=== PATIENT | male | born 1945 | race Caucasian/White ===

== ENCOUNTER 2023-05-14 15:12 | Observation (INO) | payer MEDICARE, BC ==
[~2023-05-14] VITALS: Ht 185.4 cm; Wt 85.0 kg
[2023-05-14 15:45] LABS: BASO % 0.3 % (0.0-2.0); EOS % 0.6 % (0.0-4.0); GRAN # 5.5 K/mm3 (1.4-6.5); GRAN % 75.5 % (42.2-75.2); HEMATOCRIT 45.4 % (42.0-52.0); HEMOGLOBIN 15.9 g/dl (13.5-18.0); LYMPH # 0.8 K/mm3 (1.2-3.4); LYMPH % 10.4 % (20.0-51.0); MEAN CELL VOLUME 91 fl (80.0-100.0); MEAN CORPUSCULAR HEMOGLOBIN 32 pg (27-31); MEAN CORPUSCULAR HGB CONC 35 g/dl (33.0-37.0); MEAN PLATELET VOLUME 9.1 fl (7.4-10.4); MONO # 0.9 K/mm3 (0.1-0.6); MONO % 12.9 % (1.7-9.3); PLATELET COUNT 136 K/mm3 (130-400); RED BLOOD COUNT 4.98 M/mm3 (4.20-5.60); REDCELL DISTRIBUTION WIDTH-CV 12.6 % (11.5-14.5)
[2023-05-14 15:48] LABS: INR 1.3 (0.8-3.0); PROTHROMBIN TIME 14.1 SECONDS (9.7-12.8)
[2023-05-14 16:07] LABS: ALANINE AMINOTRANSFERASE 27 U/L (0-55); ALBUMIN 3.7 gm/dL (3.4-4.8); ALKALINE PHOSPHATASE 100 U/L (40-150); ANION GAP 10 mmol/L (7-16); AST,SGOT 26 U/L (5-34); BILIRUBIN,TOTAL 0.8 mg/dL (0.2-1.2); BLOOD UREA NITROGEN 15 mg/dL (8-26); C-REACTIVE PROTEIN 2.16 mg/dL (0.00-0.50); CALCIUM 9.6 mg/dL (8.4-10.2); CARBON DIOXIDE 22 mmol/L (23-31); CHLORIDE 109 mmol/L (98-107); CREATININE, serum 0.87 mg/dL (0.72-1.25); GLUCOSE 110 mg/dL (70-99); POTASSIUM 3.9 mmol/L (3.5-4.5); SODIUM 141 mmol/L (136-145); TOTAL PROTEIN 6.6 gm/dL (6.2-8.1)
[2023-05-14 16:22] LABS: TROPONIN-I < 0.010 ng/mL (0.00-0.033)
[2023-05-14 16:55] LABS: COLLECTION METHOD CLEAN CATCH; URINE APPEARANCE Clear (CLEAR/HAZY); URINE BLOOD Negative (NEGATIVE); URINE COLOR Yellow (YELLOW); URINE GLUCOSE Negative (NEGATIVE); URINE KETONE Negative (NEGATIVE); URINE NITRATE Negative (NEGATIVE); URINE PROTEIN(semi-quant) Negative (NEGATIVE); URINE UROBILINOGEN 0.2 E.U/dL (0.2-1.0)
[2023-05-14 16:58] LABS: MUCOUS Present (NOT PRESENT); URINE BACTERIA Rare /hpf (NONE SEEN); URINE WBC 0-2 /hpf (0-2)
[2023-05-14] MEDS ORDERED: NAMENDA XR 28MG PO (18:59)
[2023-05-14] MEDS ORDERED: ARICEPT10 MG PO (19:00)
[2023-05-14] MEDS ORDERED: NORVASC 10MG10 MG PO (19:00)
[2023-05-14] MEDS ORDERED: PRINIVIL10 MG PO (19:01)
[2023-05-14] MEDS ORDERED: FLOMAX 0.40.4 MG/CAP PO (19:01)
[2023-05-14] MEDS ORDERED: REMERON 15M15 MG/TA1 PO (19:02)
[2023-05-14] MEDS ORDERED: TOPROL XL 25MG25 MG PO (19:06)
--- NOTE | 2023-05-14 20:08 | NUR ---
Patient arrived on the unit at this time with his belonging in a bag put in the closet and at bedside. Denies any pain at this time. Patient is able to tell me his name but unable to tell me his , location, or year. When given 3 options for location, patient chose the hospital which was the last option. Oriented patient and family to room, call light, bathroom, and phone. Patient deneis any other needs at this time. Call light in reach. Bed in low position and bed alarm on.
[2023-05-14 20:15] VITALS: BP 112/67; PULSE 67; TEMP 98.2
[2023-05-14 21:00] VITALS: BP_SYST 107
[2023-05-14 23:33] VITALS: BP 107/83; PULSE 72; TEMP 98.3
[2023-05-15] VITALS (7 sets, daily range): BP systolic 97–120; BP diastolic 60–74; PULSE 65–84; TEMP 97.5–98.2
--- NOTE | 2023-05-15 06:00 | NUR ---
Patient resting in bed. Respirations even and unlabored. No signs of pain or distress. at bed side. Denies any other needs at this time. Call light and personal itmes in reach. Bed in low position and bed alarm is on.
[2023-05-15 06:23] LABS: HEMATOCRIT 42.8 % (42.0-52.0); HEMOGLOBIN 14.9 g/dl (13.5-18.0); MEAN CELL VOLUME 91 fl (80.0-100.0); MEAN CORPUSCULAR HEMOGLOBIN 32 pg (27-31); MEAN CORPUSCULAR HGB CONC 35 g/dl (33.0-37.0); MEAN PLATELET VOLUME 9.3 fl (7.4-10.4); PLATELET COUNT 117 K/mm3 (130-400); RED BLOOD COUNT 4.71 M/mm3 (4.20-5.60); REDCELL DISTRIBUTION WIDTH-CV 12.6 % (11.5-14.5)
[2023-05-15 06:32] LABS: ALANINE AMINOTRANSFERASE 22 U/L (0-55); ALBUMIN 3.2 gm/dL (3.4-4.8); ALKALINE PHOSPHATASE 84 U/L (40-150); ANION GAP 9 mmol/L (7-16); AST,SGOT 22 U/L (5-34); BILIRUBIN,TOTAL 0.5 mg/dL (0.2-1.2); BLOOD UREA NITROGEN 10 mg/dL (8-26); CALCIUM 8.9 mg/dL (8.4-10.2); CARBON DIOXIDE 24 mmol/L (23-31); CHLORIDE 112 mmol/L (98-107); CHOLESTEROL 154 mg/dL (0-199); CHOLESTEROL RISK RATIO 4.2; CREATININE, serum 0.85 mg/dL (0.72-1.25); GLUCOSE 103 mg/dL (70-99); HDL CHOLESTEROL 36 mg/dL (40-60); LDL CHOLESTEROL 101 mg/dL; POTASSIUM 3.5 mmol/L (3.5-4.5); SODIUM 145 mmol/L (136-145); TOTAL PROTEIN 5.7 gm/dL (6.2-8.1); TRIGLYCERIDE 86 mg/dL (0-149)
[2023-05-15 06:33] LABS: TROPONIN-I 6 HR POST INITIAL < 0.010 ng/mL (0.00-0.033)
--- NOTE | 2023-05-15 12:46 | NUR ---
Initial visit: Director Outpatient Services stopped by room on rounds. Pt was resting and content with in the room. Pt has no needs right now. Director Outpatient Services will follow up as needed.
[2023-05-15] MEDS ORDERED: AMOXICILLIN 8751 TAB PO (14:07)
[2023-05-15] MEDS ORDERED: LIPITOR 40MG TA40 MG PO (14:09)
--- NOTE | 2023-05-15 15:18 | NUR ---
Patient discharged to home, picked up by . and patient educated on discharge instructions and new medications, verbalized understanding. Patient provided shorts by social work to wear home. IV and hydro pneumatic tester removed prior to discharge. Patient assisted to car by nursing staff, all belongings sent home with .
--- NOTE | 2023-05-15 16:26 | NUR ---
film processing utility worker met with patient and his , Khoa Burns, to discuss discharge planning. Patient lives in [place] with his , Khoa. Patient's primary care physician was Dr. Vanegas but is being moved to either Dr. Kelley or Dr. Mora. Patient's preferred pharmacy is [facility] in [place]. Patient's [facility] is [facility]. Patient has a walker at home. Patient needs 24/7 care from his . SW provided information regarding home health. Patient's expressed they were not interested at this time but possibly later. SW provided Medicare.gov list of home health agencies for the area. Patient's would like patient to see Dr. Berry at [facility]. SW contacted [facility] and Dr. Berry is not avaialble for new patients. Patient is set for an appointment with Dr. Kelley on May 27 at 10:30 Am. AVIVA notified patient and . No further questions or concerns at this time. Discharge Plan: Home
== END 2023-05-15 14:50 | disposition home or self-care (01) ==
LOC: COL.ER 15:12 → MEDICAL 19:06
PROVIDERS: Emergency Medicine; Physician Assistant; ADMIT Internal Medicine
DX: R26.81 Unsteadiness on feet (principal); R53.1 Weakness; F03.90 Unspecified dementia, unspecified severity, without behavioral disturbance, psychotic disturbance, mood disturbance, and anxiety; I48.91 Unspecified atrial fibrillation; I10 Essential (primary) hypertension; N40.0 Benign prostatic hyperplasia without lower urinary tract symptoms; Z79.899 Other long term (current) drug therapy
CPT/HCPCS: A9575; G0378; J7030

== ENCOUNTER 2023-12-01 20:31 | Observation (INO) | payer MEDICARE, BC ==
[~2023-12-01] VITALS: Ht 182.9 cm; Wt 77.8 kg
[~2023-12-01 20:31] MED LIST: AMOXICILLIN 8751 TAB PO; ARICEPT10 MG PO; FLOMAX 0.40.4 MG/CAP PO; LIPITOR 40MG TA40 MG PO; NAMENDA XR 28MG PO; NORVASC 10MG10 MG PO; PRINIVIL10 MG PO; REMERON 15M15 MG/TA1 PO; TOPROL XL 25MG25 MG PO
[2023-12-01 21:19] LABS: INR 1.4 (0.8-3.0); PROTHROMBIN TIME 15.5 SECONDS (9.7-12.8)
[2023-12-01 21:20] LABS: BASO % 0.3 % (0.0-2.0); EOS # 0.2 K/mm3 (0.0-0.7); EOS % 2.3 % (0.0-4.0); GRAN # 6.7 K/mm3 (1.4-6.5); GRAN % 70.4 % (42.2-75.2); HEMATOCRIT 45.3 % (42.0-52.0); LYMPH # 1.5 K/mm3 (1.2-3.4); LYMPH % 16.1 % (20.0-51.0); MEAN CELL VOLUME 91 fl (80.0-100.0); MEAN CORPUSCULAR HEMOGLOBIN 32 pg (27-31); MEAN CORPUSCULAR HGB CONC 35 g/dl (33.0-37.0); MEAN PLATELET VOLUME 9.3 fl (7.4-10.4); MONO % 10.4 % (1.7-9.3); PLATELET COUNT 144 K/mm3 (130-400); RED BLOOD COUNT 4.96 M/mm3 (4.20-5.60); REDCELL DISTRIBUTION WIDTH-CV 12.7 % (11.5-14.5)
[2023-12-01 21:32] LABS: ALANINE AMINOTRANSFERASE 29 U/L (0-55); ALBUMIN 3.3 g/dL (3.4-4.8); ALKALINE PHOSPHATASE 98 U/L (40-150); ANION GAP 9 mmol/L (7-16); AST,SGOT 31 U/L (5-34); BLOOD UREA NITROGEN 18 mg/dL (8-26); CALCIUM 9.6 mg/dL (8.4-10.2); CHLORIDE 107 mEq/L (98-107); CREATININE, serum 1.01 mg/dL (0.72-1.25); GLUCOSE 116 mg/dL (70-99); POTASSIUM 3.6 mEq/L (3.5-4.5); SODIUM 137 mEq/L (136-145); TOTAL PROTEIN 6.3 g/dl (6.2-8.1)
[2023-12-01 21:39] LABS: TROPONIN-I < 0.010 ng/mL (0.00-0.033)
[2023-12-01 22:32] LABS: COLLECTION METHOD CLEAN CATCH
[2023-12-01] MEDS ORDERED: ASPIRIN 81M81 MG/TA2 PO (22:39)
[2023-12-01] MEDS ORDERED: VITAMIN D31000 I1 PO (22:39)
[2023-12-01 22:40] LABS: PH 5.5 (5.0-8.5); URINE APPEARANCE CLOUDY (CLEAR/HAZY); URINE BLOOD 2+ (NEGATIVE); URINE COLOR YELLOW (YELLOW); URINE GLUCOSE NEGATIVE (NEGATIVE); URINE KETONE TRACE (NEGATIVE); URINE NITRATE NEGATIVE (NEGATIVE); URINE PROTEIN(semi-quant) 1+ (NEGATIVE)
[2023-12-01 23:26] LABS: SQUAMOUS EPITHELIAL 0-2 /hpf (0-10); URINE RBC 20-50 /hpf (0-2)
[2023-12-01 23:27] LABS: MUCOUS PRESENT (NOT PRESENT); URINE BACTERIA MODERATE /hpf (NONE SEEN)
[2023-12-01] MEDS ORDERED: Ondansetron 4 MG/2 ML VIAL IV PRN (23:30)
[2023-12-01] MEDS ORDERED: Acetaminophen 325 MG TAB PO PRN (23:30)
[2023-12-01] MEDS ORDERED: traMADol 50 MG TAB PO PRN (23:30)
[2023-12-02 01:19] VITALS: BP 155/92; PULSE 71; TEMP 97.6
--- NOTE | 2023-12-02 03:07 | NUR ---
patient arrived from ED around 0050, alert and oriented to self only. pt unable to be an accurate historian, admission assessments performed to best of RN ability. denies chest pain and shortness of breath. pt noted to be in pain during bed changes and turning pt for incontinent care, pt denies pain when at rest. lidocaine patch noted on both left and right lower back, both removed at this time, right 2nd toe with bandaid, small red spots noted on scrotum and small scaterred bruising on extremities noted. IV in LF is patent, site is clean dry and intact. pt has no further needs, questions, or concerns at this time. fall precautions in place, call light within reach. will continue to monitor.
[2023-12-02 03:44] VITALS: BP 125/82; PULSE 65; TEMP 97.5
[2023-12-02 04:35] VITALS: BP_SYST 125
[2023-12-02 07:10] LABS: CALCIUM 9.4 mg/dL (8.4-10.2); CREATININE, serum 0.76 mg/dL (0.72-1.25); POTASSIUM 3.5 mEq/L (3.5-4.5)
[2023-12-02 07:15] LABS: BASO % 0.4 % (0.0-2.0); EOS # 0.3 K/mm3 (0.0-0.7); EOS % 3.1 % (0.0-4.0); GRAN # 6.3 K/mm3 (1.4-6.5); HEMATOCRIT 49.3 % (42.0-52.0); HEMOGLOBIN 17.2 g/dl (13.5-18.0); LYMPH # 1.9 K/mm3 (1.2-3.4); LYMPH % 19.7 % (20.0-51.0); MEAN CELL VOLUME 92 fl (80.0-100.0); MEAN CORPUSCULAR HEMOGLOBIN 32 pg (27-31); MEAN CORPUSCULAR HGB CONC 35 g/dl (33.0-37.0); MEAN PLATELET VOLUME 9.5 fl (7.4-10.4); MONO # 0.9 K/mm3 (0.1-0.6); MONO % 9.3 % (1.7-9.3); PLATELET COUNT 115 K/mm3 (130-400); RED BLOOD COUNT 5.35 M/mm3 (4.20-5.60); REDCELL DISTRIBUTION WIDTH-CV 12.7 % (11.5-14.5)
[2023-12-02] MEDS ORDERED: amLODIPine 10 MG TAB PO SCH (09:00)
[2023-12-02] MEDS ORDERED: Lisinopril 10 MG TAB PO SCH (09:00)
[2023-12-02] MEDS ORDERED: Lidocaine 4% Topical Patch TP SCH (09:00)
[2023-12-02] MEDS ORDERED: Memantine 10 MG TAB PO SCH (21:00)
[2023-12-02] MEDS ORDERED: Mirtazapine 15 MG TAB PO SCH (21:00)
[2023-12-02] MEDS ORDERED: Donepezil 5 MG TAB PO SCH (21:00)
== END 2023-12-02 18:00 | disposition left against medical advice (07) ==
LOC: COL.ER 20:31 → MEDICAL 22:35
PROVIDERS: Nurse Practitioner Primary Care; Physician Assistant; ADMIT Hospitalist
DX: M54.50 Low back pain, unspecified (principal); F03.90 Unspecified dementia, unspecified severity, without behavioral disturbance, psychotic disturbance, mood disturbance, and anxiety; I10 Essential (primary) hypertension; G47.00 Insomnia, unspecified; R53.1 Weakness; R11.0 Nausea; Z79.899 Other long term (current) drug therapy
CPT/HCPCS: G0378; J1650